=== PATIENT | male | born 2000 ===

== ENCOUNTER 2025-03-26 16:04 | Emergency (ER) | payer OTHER, SELFPAY ==
[2025-03-26] VITALS (31 sets, daily range): BP systolic 115–138; BP diastolic 65–91; PULSE 109–130; RESP 6–26; TEMP 37.1; O2SAT 93–99; BMI 29.8
--- OUTSIDE RECORDS SUMMARY | 2025-03-26 16:06 | XMS_ITS | Clinical Summary ---
Author Organization [facility] Address [address] [place] [id number] Care Team Providers Care Furniture Designer Name Role Phone Pcp, No Primary Care Provider Unavailabl e Allergies No known active allergies Medications triamcinolone 0.1 % creamIndication s:Rash Apply topically to affected area(s) three times daily. 80 g 2 5 Active hydrocortisone 2.5 % creamIndication s:Rash Apply topically to affected area(s) 3 times daily if needed for Itching. 30 g 5 Active Active Problems Problem Noted Date Diagnosed Date Excessive drinking of alcohol 09/08/2022 Encounters Date Type Department Care Team Description 01/16/2025 Patient Outreach [facility] Care Management - Care Management Navigation/[facility] [address] [place] [id number] Germaine Summers, [facility] Care Management Intake (Social work care management intake outreach./) 12/29/2024 Telephone [facility] [address] [place] [address] Trinidad Cifuentes, Follow Up (Rash) 12/26/2024 Telephone [facility] [address] [place] [address] Trinidad Cifuentes, DO Results from Last 3 Months Immunizations Immunization Administration Dates Next Due DTaP 10/23/2009, 3,12/09/1999,03/17,01/13/1999,1998 Hepatitis A (Peds) 07/12/2008,09/23/2000 Hepatitis B (Peds) 03/17/1999,01/13/1999, 999 Hib Conjugate, Unspecified 12/09/1999,,01/13/1999,11/12 Human Papilloma Virus Vaccine 10/19/2014, 013,05/19/2012 Influenza, CCIIV3 (Age >=6 M O) (Egg Free) 05/19/2012 Influenza, IIV4 08/26/2015 MENINGOCOCCAL VACCINE 2 VIAL 2MO-55YO (MENVEO) 10/19/2014 MMR 10/21/2002,09/16/1999 Meningococcal Vaccine 10/23/2009 Meningococcal, Unspecified 10/23/2009 Oral Polio Vaccine 10/21/2002,09/16/1999, 999 Polio Virus, Unspecified 10/21/2002,09/16/1999,0 1998 Tdap 08/26/2015 Varicella Vaccine 10/23/2009,03/22/2000 Family History Medical History Relation Name Comments Good Health Father Coronary artery disease Maternal Grandmother NC at age 40 Hypertension Maternal Grandmother Kidney failure Maternal Grandmother Good Health Mother Relation Name Status Comments Brother 1 Alive Brother 2 Alive Father Alive Maternal Grandmother Mother Alive Social History Tobacco Use Types Packs/Day Years Used Date Smoking Tobacco: Never Passive Smoke Exposure: Never Smokeless Tobacco: Never Tobacco Cessation:Counseling Given: Not Answered Alcohol Use Standard Drinks/Week Comments Yes 2 (1 standard drink = 0.6 oz pur e alcohol) 2 times a week PHQ-2 Answer Date Recorded PHQ-2 TOTAL SCORE 1 12/22/2024 Social Connections Answer Date Recorded Do you often feel lonely or isolated from those around you? 0 12/22/2024 Financial Resource Strain Answer Date R ecorded Difficulty of Paying Living Expenses 3 12/22/2024 Difficulty of Paying Living Expenses Not on file 12/22/2024 Food Insecurity Answer Date Recorded Do you worry your food will run out before you are able to buy more? 1 12/22/2024 Transportation Needs Answer Date Record ed Does lack of transportation keep you from medica l appointments? 1 12/22/2024 Does lack of transportation keep you from work, meetings or getting things that you need? 1 12/22/2024 Housing Stability Answer Date Recorded What is your housing situation today? 1 12/22/2024 Utilities Answer Date Recorded Do you have trouble paying f or utilities (for example, heat, electricity, water, phone)? 1 12/22/2024 Sex and Gender Information Value Date Recorded Sex Assigned at Not on file Legal Sex Male 7:53 AM CDT Gender Identity Not on file Sexual Orientation Not on file Occupation Industry Job Start Date Job End Date Cook Not on file Not on file Not on file Obstetrics History Last Filed Vital Signs Vital Sign Reading Time Taken Comments Blood Pressure 133/86 12/22/2024 7:50 AM CDT Pulse 96 12/22/2024 7:50 AM CDT Temperature 36.4 C (97.6 F) 12/08/2022 10:38 AM CDT Respiratory Rate 18 12/08/2022 10:38 AM CDT Oxygen Saturation 100% 12/22/2024 7:50 AM CDT Inhaled Oxygen Concentration - - Weight 104 kg (229 lb 4.8 oz) 12/22/2024 7:50 AM CDT Height 180.4 cm (5' 11.02) 12/22/2024 7:50 AM C DT Body Mass Index 31.96 12/22/2024 7:50 AM CDT Plan of Treatment Health Maintenance Due Date Last Done Comments HIV for age 15-65 2013 Pneumococcal series for age 6-49 (1 of 2 - PCV) 2017 COVID-19 vaccine series (2 - season) 2024 03/08/2023 Influenza Vaccine (#1) 2025 08/26/2015, 2011 Tetanus booster 08/26/2025 08/26/2015 BMI (ht and wt on same day) for age 18+ 12/22/2025 12/22/2024, 12/08/2022, 03/18/2021, Additional history exists Depression screening for age 12+ 12/22/2025 12/22/2024, 09/08/2022, 09/07/2022, Additional history exists Hepatitis B series for 19+ Completed 03/17, 01/13/1999, 1998 HPV series for age 9-26 Completed 10/20/19 15, 06/09/2013, 05/19/2012 Hepatitis C screening for ag e 18-79 Completed 09/18/2022 Procedures Procedure Name Priority Date/Time Associated Diagnosis Comments LC HCV ANTIBODY RFX TO QUANT PCR Routine 09/18/2022 9:19 AM KIDNEY PULLER Elevated liver enzymes from Last 3 Months or Most Recently Relevant to Health Maintenance Results * LC HCV ANTIBODY RFX TO QUANT PCR (09/18/2022 9:19 AM KIDNEY PULLER) HCV Ab Non Reactive Non Reactive 09/22/2022 10:06 PM [facility]NEY P[facility] Blood BLOOD SPECIMEN / Unknown Venipuncture / Unknown 09/18/2022 9:19 AM KIDNEY PULLER 09/18/2022 9:29 AM KIDNEY PULLER Narrative [facility] - 09/22/2022 10:06 PM KIDNEY PULLER Performed at: [address] [place] [id number] [employer] Technology Development Manager: Denver Louis MD, Phone: [phone] us Trinidad Cifuentes DO LABORATORY Final Result [facility] [address] [place] [id number], from Last 3 Months or Most Recently Relevant to Health Maintenance Care Teams Furniture Designer Relationship Specialty Start Date End Date Pcp, No . PCP - General 10/10/14
[2025-03-26] MEDS: METHYLPREDNISOLONE SOD SUCC 62.5 MG/ML (125) 125 MG IVP (16:18)
--- NOTE | 2025-03-26 16:29 | ED.ALLEREA ---
HPI - Allergic Reaction General Chief complaint: Allergic Reaction Stated complaint: allergic reaction Time Seen by Provider: 03/26/25 16:17 History of Present Illness HPI narrative: This 24-year-old male comes in because of a bee sting that occurred about 30 minutes prior to arrival. He was stung in his right earlobe and has some swelling only in that area. He does have some generalized erythema and after arrival here he did have some sympathetic reaction with some involuntary shaking. He does not report any lightheadedness and arrives with normal vital signs. He has no signs of angioedema. He does not report any prior history of allergy to bee stings or wasps stings. Review of Systems Status of ROS Reports: 10 or more systems reviewed and unremarkable except as noted in History and below Narrative Constitutional: No fevers, no weight gain or loss. Eyes: No discharge. No vision changes. HENT: No congestion, no sore throat, no ear pain. Cardiovascular: No chest pain, no palpitations. Respiratory: No shortness of breath, no wheezes, no cough. Gastrointestinal: No abdominal pain, no vomiting, no diarrhea. Genitourinary: No dysuria, no hematuria. Musculoskeletal: Normal range of motion. Skin: No rashes, no pruritis. Mild generalized erythema. Mild swelling of the right ear lobe were his bee sting occurred. Neurological: No dizziness, weakness, sensory change, speech change. Endo/Heme/Allergies: No bruising or bleeding. No polydipsia. Pysch: no suicidality, no anxiety, no insomnia. All other systems reviewed and are negative. Exam Narrative: Exam Narrative: Constitutional: Well-developed, well-nourished, no acute distress. HEENT: Normocephalic, atraumatic. Neck: Normal range of motion. Nontender. Supple. Heart: Regular. No murmurs. Normal rate. Intact distal pulses. Lungs: Clear to auscultation. No chest discomfort. No wheezes, rhonchi, or rales. Abdomen: Normal bowel sounds. Nontender. No rebound tenderness. Genitalia: Deferred. Back: No midline tenderness. Normal range of motion. Extremities: Normal range of motion. No injury. Skin: Intact. No rash. Warm. No pallor. generalized mild erythema. Mild swelling of the right earlobe where the bee sting occurred. Neurologic: No altered sensation. No weakness. Alert and oriented. Psychiatric: No suicidality. No anxiety or depression. No insomnia. Nursing notes and vitals signs are reviewed. Const: Vital Signs, click to edit/add: Vital Signs - 24 hr 03/26/25 16:08 03/26/25 16:19 03/26/25 16:20 Temperature 98.8 F Pulse Rate 119 H 115 H Pulse Rate [Pulse Oximeter] 130 H Respiratory Rate 26 H 12 16 Blood Pressure 125/75 Blood Pressure [Ri ght Upper Arm] 115/65 Pulse Oximetry 98 99 99 Oxygen Delivery Me thod Room Air 03/26/25 16:22 03/26/25 16:27 03/26/25 16:30 Temperature Pulse Rate 115 H 126 H 119 H Pulse Rate [Pulse Oximeter] Respiratory Rate 13 9 L 13 Blood Pressure 138/82 136/74 Blood Pressure [Ri ght Upper Arm] Pulse Oximetry 97 98 98 Oxygen Delivery Me thod Room Air 03/26/25 16:32 03/26/25 16:37 03/26/25 16:42 Temperature Pulse Rate 127 H 122 H 118 H Pulse Rate [Pulse Oximeter] Respiratory Rate 14 13 17 Blood Pressure 137/67 133/75 132/80 Blood Pressure [Ri ght Upper Arm] Pulse Oximetry 97 97 98 Oxygen Delivery Me thod 03/26/25 16:45 03/26/25 16:47 Temperature Pulse Rate 124 H 118 H Pulse Rate [Pulse Oximeter] Respiratory Rate 17 17 Blood Pressure 129/75 Blood Pressure [Ri ght Upper Arm] Pulse Oximetry 98 98 Oxygen Delivery Me thod Course Vital Signs Vital signs: Initial Vital Signs Temperature 98.8 F 03/26/25 16:08 Temperature Source Temporal Artery Scan 03/26/25 16:08 Pulse Rate 130 H 03/26/25 16:08 Pulse Rhythm Regular 03/26/25 16:08 Respiratory Rate 26 H 03/26/25 16:08 Blood Pressure 115/65 03/26/25 16:08 Blood Pressure Mean 81 03/26/25 16:08 Blood Pressure Position Sitting 03/26/25 16:08 Pulse Oximetry 98 03/26/25 16:08 Oxygen Delivery Method Room Air 03/26/25 16:08 Vital Signs Temperature 98.8 F 03/26/25 16:08 Pulse Rate 130 H 03/26/25 16:08 Respiratory Rate 26 H 03/26/25 16:08 Blood Pressure 115/65 03/26/25 16:08 Pulse Oximetry 98 03/26/25 16:08 Oxygen Delivery Method Room Air 03/26/25 16:08 Temperature 98.8 F 03/26/25 16:08 Pulse Rate 118 H 03/26/25 16:47 Respiratory Rate 17 03/26/25 16:47 Blood Pressure 129/75 03/26/25 16:47 Pulse Oximetry 98 03/26/25 16:47 Oxygen Delivery Method Room Air 03/26/25 16:30 Medications Administered Medications: Discontinued Medications Generic Name Dose Route Start Last Admin Trade Name Nikita PRN Reason Stop Dose Admin Diphenhydramine HCl 25 mg 03/26/25 16:18 03/26/25 16:18 Diphenhydramine 50 Mg/Ml Inj IVP 03/26/25 16:19 25 mg ONCE ONE Administration Lorazepam 0.5 mg 03/26/25 16:31 03/26/25 16:37 Lorazepam 0.5 Mg Tablet PO 03/26/25 16:32 0.5 mg ONCE ONE Administration Methylprednisolone Sodium Succinate 125 mg 03/26/25 16:18 03/26/25 16:18 Methylprednisolone Sod Succ 62.5 Mg/Ml (125) IVP 03/26/25 16:19 125 mg ONCE ONE Administration MDM - Allergic Reaction MDM Narrative Medical decision making narrative: This patient comes in for evaluation after a bee sting on his right earlobe. He was not showing any signs of anaphylaxis or angioedema. He did receive IV doses of Solu-Medrol 125 mg and Benadryl 25 mg. He did have some sympathetic nervous system reaction with some tremors and then received Ativan 0.5 mg. He is doing better and never did show any sign of compromise from the bee sting. He was observed for a couple hours and is okay to be discharged home. Discharge Plan Discharge Clinical Impression: Bee sting reaction Patient Disposition: Home w/ Parent or Adult Condition: Stable Additional Instructions: Use [id number] medicines as needed and directed. Antihistamine such as Bailey, Zyrtec, or Claritin in particular may be helpful. Follow up with MD return if worsening. Follow Up/Referrals: Trinidad Cifuentes DO [Primary Care Provider, Family Practice] Stand Alone Forms: [employer] Info Instructions
== END 2025-03-26 18:15 | disposition home or self-care (01) ==
PROVIDERS: Emergency Provider Emergency Medicine Emergency Medical Services; PCP Family Medicine
DX: T63.441A Toxic effect of venom of bees, accidental (unintentional), initial encounter (principal)
CPT/HCPCS: 96374; 96375; 99283; 99284; A9270; J1200; J2919